=== PATIENT | female | born 1960 | race Caucasian/White ===

== ENCOUNTER 2017-07-30 05:35 | Observation (INO) | payer OTHER ==
[2017-07-30] MEDS ORDERED: KETOROLAC 30 MG INJ ×2 (07:00→09:19)
[2017-07-30] MEDS ORDERED: LIDOCAINE 100 MG SYRINGE (07:25)
[2017-07-30] MEDS ORDERED: DEXAMETHASONE 4 MG/ML 1 ML INJ (07:25)
[2017-07-30] MEDS ORDERED: PROPOFOL 20 ML (07:25)
[2017-07-30] MEDS ORDERED: MIDAZOLAM 1 MG/ML 2 ML INJ (07:25)
[2017-07-30] MEDS ORDERED: FENTAnyl 50 MCG/ML VIAL (07:25)
[2017-07-30] MEDS ORDERED: ONDANSETRON 4 MG INJ (07:25)
[2017-07-30] MEDS ORDERED: ROCURONIUM 50 MG INJ (07:25)
[2017-07-30] MEDS ORDERED: SCOPOLAMINE 1.5 MG PATCH (08:08)
[2017-07-30] MEDS ORDERED: METOCLOPRAMIDE 10 MG INJ (08:11)
[2017-07-30] MEDS ORDERED: FAMOTIDINE 20 MG INJ (08:11)
[2017-07-30] MEDS ORDERED: ACETAMINOPHEN 1000MG/100ML IV 100 ML (08:21)
[2017-07-30] MEDS ORDERED: HYDROmorphONE 2 MG/ML SYG (08:26)
[2017-07-30] MEDS: BUPIVACAINE 0.25% (MPF) 30 ML INJ ×2 (08:57)
[2017-07-30] MEDS: LIDOCAINE 1%/EPI 30 ML INJ ×2 (08:58→09:18)
[2017-07-30] MEDS: GENTAMICIN 80 MG INJ (09:19)
[2017-07-30] MEDS: POLYMYXIN/BACITRACIN 1L IRRIG (09:19)
[2017-07-30] MEDS ORDERED: SUGAMMADEX SODIUM 200 MG/2 ML VIAL IV (09:19)
[2017-07-30] MEDS ORDERED: DIPHENHYDRAMINE 50 MG INJ IV (09:30)
[2017-07-30] MEDS ORDERED: ONDANSETRON 4 MG INJ IV ×2 (09:30→10:00)
[2017-07-30] MEDS ORDERED: FENTAnyl 50 MCG/ML VIAL IV ×2 (09:30)
[2017-07-30] MEDS ORDERED: MEPERIDINE 25 MG INJ IV (09:30)
[2017-07-30] MEDS ORDERED: MIDAZOLAM 1 MG/ML 2 ML INJ IV (09:30)
[2017-07-30] MEDS ORDERED: HYDROmorphONE (0.2 MG/ML) 10ML SYG IV ×2 (09:30)
[2017-07-30] MEDS ORDERED: morphine 2 MG INJ IV (10:00)
[2017-07-30] MEDS ORDERED: OXYCODONE/ACETAMINOPHEN (5/325) TAB PO (10:00)
[2017-07-30] MEDS: MUPIROCIN 2% 15 GM CR (10:48)
[2017-07-30] MEDS ORDERED: CEFAZOLIN 1 GM INJ (13:17)
[2017-07-30] MEDS ORDERED: CEFAZOLIN 1 GM/50 ML (PMX) 50 ML IVPB (13:30)
[2017-07-30] MEDS: D5W-0.45 NACL + KCL 20 MEQ 1,000 ML IV (16:08)
[2017-07-30] MEDS ORDERED: SENNA TAB PO (17:00)
[2017-07-30] MEDS ORDERED: DOCUSATE SODIUM 100 MG CAP PO (17:00)
[2017-07-30] MEDS: GENTAMICIN 160 MG in SOD CHLORIDE 0.9% 100 ML IVPB (17:31)
[2017-07-30] MEDS: IBUPROFEN 600 MG TAB PO (20:57)
[2017-07-30] MEDS: CEFAZOLIN 1 GM/50 ML (PMX) 50 ML IVPB ×2 (22:00→22:14)
[2017-07-30] MEDS: SOD CHLORIDE 0.9% 1,000 ML IV (23:24)
[2017-07-31] MEDS: OXYCODONE/ACETAMINOPHEN (5/325) TAB PO (00:26)
[2017-07-31] MEDS: MAGNESIUM HYDROXIDE 30ML CUP PO (00:27)
[2017-07-31] MEDS: D5W-0.45 NACL + KCL 20 MEQ 1,000 ML IV (03:47)
[2017-07-31] MEDS: IBUPROFEN 600 MG TAB PO ×2 (03:51→09:33)
[2017-07-31 05:08] LABS: ADD MAN DIFF? NO
[2017-07-31 05:14] LABS: BASOPHILS % 0.3 % (0.0-2.0); EOSINOPHILS # 0.1 10^3/ul (0.0-0.5); EOSINOPHILS % 0.5 % (0.0-7.0); HEMATOCRIT 31.8 % (37.0-47.0); HEMOGLOBIN 10.7 g/dl (12.0-16.0); LYMPHOCYTES # 1.2 10^3/ul (0.8-2.9); MEAN CORPUSCULAR HEMOGLOBIN 31.8 pg (29.0-33.0); MEAN CORPUSCULAR HGB CONC 33.6 g/dl (32.0-37.0); MEAN CORPUSCULAR VOLUME 94.4 fl (82.0-101.0); MEAN PLATELET VOLUME 12.8 fl (7.4-10.4); MONOCYTE # 0.5 10^3/ul (0.3-0.9); MONOCYTES % 5.4 % (0.0-11.0); NEUTROPHIL # 7.6 10^3/ul (1.6-7.5); NEUTROPHILS % 80.5 % (39.0-77.0); PLATELET COUNT 123 10^3/UL (140-415); RED BLOOD COUNT 3.37 10^6/ul (4.20-5.40); RED CELL DISTRIBUTION WIDTH 12.9 % (11.5-14.5)
[2017-07-31 05:14] LABS: WHITE BLOOD COUNT 9.5 10^3/ul (4.8-10.8)
[2017-07-31] MEDS: CEFAZOLIN 1 GM/50 ML (PMX) 50 ML IVPB (06:00)
== END 2017-07-31 14:35 | disposition home or self-care (01) ==
LOC: REC 05:35 → MS1 15:25
PROVIDERS: Surgery
DX: Z40.01 Encounter for prophylactic removal of breast (principal); Z15.01 Genetic susceptibility to malignant neoplasm of breast; Z85.43 Personal history of malignant neoplasm of ovary; Z92.21 Personal history of antineoplastic chemotherapy; Z87.891 Personal history of nicotine dependence; Z88.5 Allergy status to narcotic agent
CPT/HCPCS: 15777; 85025; 88307; 99217